=== PATIENT | female | born 1970 | race Caucasian/White ===

== ENCOUNTER 2017-06-25 11:53 | Emergency (ER) | payer SELFPAY ==
[~2017-06-25] VITALS: Ht 165.1 cm; Wt 61.2 kg
[2017-06-25] MEDS ORDERED: MORPHINE SULFATE 4 MG/1 ML DISP.SYRIN IM ONE (12:45)
[2017-06-25] MEDS ORDERED: ONDANSETRON 4 MG/2 ML VIAL IM ONE (12:45)
[2017-06-25] MEDS ORDERED: MORPHINE SULFATE 4 MG/1 ML DISP.SYRIN ONE (12:59)
[2017-06-25] MEDS ORDERED: ONDANSETRON 4 MG/2 ML VIAL ONE (12:59)
--- NOTE | 2017-06-25 13:20 | NUR ---
Patient discharged to home in stable conditon with family. Written and verbal after care instructions given. Patient verbalizes understanding of instructions.
== END 2017-06-25 13:22 | disposition home or self-care (01) ==
LOC: ER 11:53
DX: M54.41 Lumbago with sciatica, right side (principal)
CPT/HCPCS: A4663; J2270; J2405

== ENCOUNTER 2019-07-31 16:14 | Emergency (ER) | payer SELFPAY ==
[~2019-07-31] VITALS: Ht 165.1 cm; Wt 61.2 kg
[2019-07-31] MEDS ORDERED: ONDANSETRON ODT 4 MG TAB.RAPDIS SL ONE (16:45)
[2019-07-31] MEDS ORDERED: MORPHINE SULFATE 4 MG/1 ML DISP.SYRIN IM ONE (16:45)
[2019-07-31] MEDS ORDERED: ONDANSETRON ODT 4 MG TAB.RAPDIS ONE (16:46)
[2019-07-31] MEDS ORDERED: MORPHINE SULFATE 4 MG/1 ML DISP.SYRIN ONE (16:47)
--- NOTE | 2019-07-31 17:10 | NUR ---
PATIENT STATES FEELING BETTER , PAIN LEVEL IS 2/10, ABLE TO AMBULATE WITH A STEADY GAIT.
[2019-07-31] MEDS ORDERED: DEXAMETHASONE SOD PHOSPHATE 4 MG INJ IM ONE (17:15)
[2019-07-31] MEDS ORDERED: DEXAMETHASONE SOD PHOSPHATE 4 MG INJ ONE (17:20)
[2019-07-31 17:26] VITALS: BP 118/82
--- NOTE | 2019-07-31 17:27 | NUR ---
PT D/C HOME WITH PRESCRIPTION FROM ., able to ambulate and understands d/c instructions.
== END 2019-07-31 17:29 | disposition home or self-care (01) ==
LOC: ER 16:16
DX: M54.41 Lumbago with sciatica, right side (principal); Z90.710 Acquired absence of both cervix and uterus
CPT/HCPCS: 96372 ×2; 99283; J1100; J2270; A4663; Q0162